=== PATIENT | female | born 1975 | race Caucasian/White ===

== ENCOUNTER → 2023-03-14 15:37 | Outpatient (CLI) | payer OTHER, SELFPAY ==
--- NOTE | ~2023-03-14 | CT_ITS ---
EXAMINATION: CT pelvis w con INDICATION: Posterior pelvic mass TECHNIQUE: Computed tomographic images of the pelvis were obtained after the administration of 100 cc of Omnipaque 350 intravenous contrast. The dose-length product (DLP) was 757.60 mGy-cm. Automated ex posure control and iterative reconstruction technique were employed. COMPARISON: None available FINDINGS: There is a 5.1 cm round mass at the posterior uterine body with the appearance of an subser osal fibroid. No suspicious pelvic mass is identified. There are no pathologically enlarged pelvic ly mph nodes. An IUD is present in the uterus in expected position. Simple cysts of the ovaries measure up to 3.1 cm on the left. IMPRESSION: 1. Subserosal fibroid of the posterior uterine body. Reviewed, dictated and finalized at location F.
== END ==
PROVIDERS: PCP Nurse Practitioner; Visit Provider Nurse Practitioner
DX: R19.09 Other intra-abdominal and pelvic swelling, mass and lump (principal); D25.9 Leiomyoma of uterus, unspecified
CPT/HCPCS: 72193; Q9967

== ENCOUNTER 2023-12-03 05:50 | Day surgery (SDC) | payer OTHER, SELFPAY ==
[2023-10-21 08:01] VITALS: BMI 39.5
[2023-11-20 07:41] VITALS: BMI 37.8
[2023-12-03 06:18] VITALS: BMI 38.9
[2023-12-03 06:27] VITALS: BP 126/71; PULSE 98; RESP 16; TEMP 37.1; O2SAT 100
--- NOTE | 2023-12-03 07:07 | PM.HPGS ---
History of Present Illness History of Present Illness Consent: Risks, benefits, and alternatives have been discussed and questions answered. Patient agrees to proceed with procedure. Chief complaint: Neoplasia screening Narrative: Mere Sher is a 48 year old female presents for screening colonoscopy. Bowel movements are normal. Patient denies abdominal pain. She has had no bleeding. Family history is significant her mother has had colon issues intermittently. The diagnosis is not immediately available. Patient denies any blood in her own stools. Her bowel habits are normal. Review of Systems Review of Systems: Review of systems noncontributory. COUNT INCLUDES THE [facility] Social History Social History Smoking status: Never smoker Alcohol intake: current Substance use: never Substance use type: does not use Living arrangements: with family Spiritual care concerns: No Meds Home Medications and Allergies Home Medications Medication Instructions Recorded Confirmed Type famotidine 10 mg tablet (Pepcid AC) 10 mg PO DAILY 11/20/23 12/03/23 History Allergies Allergy/AdvReac Type Severity Reaction Status Date / Time procaine Allergy Unknown SWELLING Verified 12/03/23 06:12 OF FACE Vital Signs Vital Signs - 24 hr 12/03/23 06:27 Temperature 98.8 F Pulse Rate 98 Respiratory Rate 16 Blood Pressure 126/71 Pulse Oximetry 100 Oxygen Delivery Room Air Exam Narrative: Physical exam reveals patient to be alert. Vital signs stable. HEENT exam is unremarkable. Patient is anicteric. Lungs are clear to auscultation and percussion is without murmur or extra sounds. Abdomen bowel sounds are present soft nontender with no organomegaly. Digital external rectal exam is normal. Assessment and Plan Assessment and plan (1) Encounter for screening colonoscopy: Code(s): Z12.11 - Encounter for screening for malignant neoplasm of colon Status: Acute Assessment and Plan: Patient presents today for screening colonoscopy. She appears to be at average risk for colon polyps.
--- NOTE | 2023-12-03 07:16 | WPDANESEPPF ---
Anes - Initial Pre Proc Eval Procedure: Operation Date: 12/03/23 07:30 Proposed Procedures p Colonoscopy - Shukri Cantu MD Date/Time: 12/03/23 07:16 Surgeon: Shukri Cantu MD Pre Op Diagnosis: Neoplasia screening Patient Data Age: 48 Gender: F Height: 1.63 m Weight: 102.9 kg Last Vital Signs Temp 37.1 C 12/03/23 06:27 Pulse 98 12/03/23 06:27 Resp 16 12/03/23 06:27 BP 126/71 12/03/23 06:27 Pulse Ox 100 12/03/23 06:27 O2 Del Method Room Air 12/03/23 06:27 Allergies Allergy/AdvReac Type Severity Reaction Status Date / Time procaine Allergy Unknown SWELLING Verified 12/03/23 06:12 OF FACE Home Medications Medication Instructions Recorded Confirmed Type famotidine 10 mg tablet (Pepcid AC) 10 mg PO DAILY 11/20/23 12/03/23 History Patient hx anesthesia problems: none Family hx anesthesia problems: none Results Review: All pre-operative results and documents have been reviewed as part of the pre-operative evaluation. [facility] Social History Social History Smoking status: Never smoker Alcohol intake: current Substance use: never Substance use type: does not use Living arrangements: with family Spiritual care concerns: No Anes - Eval Final PreProcedure Day of Procedure 12/03/23 07:16 Patient weight: obese Heart: regular rate and rhythm Lungs: clear to auscultation Airway: Mallampati scale class II Neurological: alert and oriented Last oral intake: >/= 8 hours ASA classification: II Emergent: no Anesthetic plan: proceed Anesthesia type and monitoring: general GIVS and standard monitoring Results Review: All pre-operative results and documents have been reviewed as part of the pre-operative evaluation. Informed Consent: The patient's anesthetic plan and its attendant risks and benefits were discussed with the patient/family/POA. Questions were solicited and answers provided to the satisfaction of the patient/family/POA.
[2023-12-03] MEDS: LACTATED RINGERS 1,000 ML 150 ML IV CONT (07:18)
[2023-12-03 07:50] VITALS: BP 101/63; PULSE 83; RESP 16; O2SAT 94
[2023-12-03 08:00] VITALS: BP 99/65; PULSE 84; RESP 16; O2SAT 99
[2023-12-03 08:10] VITALS: BP 105/76; PULSE 90; RESP 18; O2SAT 99
--- NOTE | 2023-12-03 08:56 | WPDANESPN ---
Anes - Prog Note Post-Op Date/Time: 12/03/23 08:56 Cardiovascular status: normal Respiratory status: normal Airway patency: baseline Mental status: baseline Post-Op hydration status: normal Vital Signs: Last Vital Signs Temp 37.1 C 12/03/23 06:27 Pulse 90 12/03/23 08:10 Resp 18 12/03/23 08:10 BP 105/76 12/03/23 08:10 Pulse Ox 99 12/03/23 08:10 O2 Del Method Room Air 12/03/23 08:10 Pain Score (VAS): 0 I/O: Intake & Output 12/02/23 12/03/23 12/03/23 23:59 07:59 15:59 Intake Total 450 Balance 450 Patient Feedback: Patient satisfied with anesthetic care.
== END 2023-12-03 08:21 | disposition home or self-care (01) ==
PROVIDERS: Visit Provider Internal Medicine Gastroenterology
PROC: 0DJD8ZZ Inspection of Lower Intestinal Tract, Via Natural or Artificial Opening Endoscopic (ICD-10-PCS; CPT 45378; principal; 2023-12-03 07:30)
DX: Z12.11 Encounter for screening for malignant neoplasm of colon (principal); K64.8 Other hemorrhoids
CPT/HCPCS: 45378